=== PATIENT | male | born 1980 | race Caucasian/White ===

== ENCOUNTER 2021-04-08 18:55 | Emergency (ER) | payer BC ==
[2021-04-08] MEDS ORDERED: predniSONE 20 MG TAB ONE (20:07)
[2021-04-08] MEDS ORDERED: Cephalexin 500 MG CAP ONE (20:07)
== END 2021-04-08 20:28 | disposition home or self-care (01) ==
LOC: MADERS 18:55
DX: L30.9 Dermatitis, unspecified (principal); F17.210 Nicotine dependence, cigarettes, uncomplicated; E05.90 Thyrotoxicosis, unspecified without thyrotoxic crisis or storm
CPT/HCPCS: 99283; J7512

== ENCOUNTER 2021-07-10 11:48 | Emergency (ER) | payer BC ==
[2021-07-10] MEDS ORDERED: predniSONE 20 MG TAB ONE (12:05)
[2021-07-10] MEDS ORDERED: HYDROcodone/Acetaminophen 5/325 mg Tablet ONE (12:05)
== END 2021-07-10 12:18 | disposition home or self-care (01) ==
LOC: MADERS 11:48
DX: M54.50 Low back pain, unspecified (principal); E05.90 Thyrotoxicosis, unspecified without thyrotoxic crisis or storm; F17.210 Nicotine dependence, cigarettes, uncomplicated
CPT/HCPCS: 99283; J7512

== ENCOUNTER 2022-10-21 17:14 | Emergency (ER) | payer BC, SELFPAY ==
[2022-10-21] MEDS ORDERED: Morphine 4 MG/ML VIAL ONE (19:23)
[2022-10-21] MEDS ORDERED: Ondansetron PF 4 MG/2 ML Vial ONE (19:23)
[2022-10-21] MEDS ORDERED: Lactated Ringer's 2,000 ML ONE (19:23)
[2022-10-21 21:16] LABS: #Basophils 0.1 thou/uL (0.0-0.2); #Lymphocytes 0.7 thou/uL (1.20-3.40); #Monocytes 0.9 thou/uL (0.11-0.59); #Neutrophils 5.5 thou/uL (1.40-6.50); %Basophils 1.5 % (0.0-1.0); %Eosinophils 0.5 % (0.0-10.0); %Lymphocytes 9.8 % (21.0-51.0); %Monocytes 11.9 % (0.0-10.0); %Neutrophils 76.2 % (42.0-75.0); Hemoglobin 14.5 g/dL (14.0-18.0); Mean Corpuscular HGB CONC 33.8 g/dL (32.0-36.0); Mean Corpuscular Hemoglobin 28.7 pg (27.0-31.0); Mean Corpuscular Volume 84.8 fl (78.0-98.0); Mean Platelet Volume 7.5 fL (7.4-10.4); Platelet Count 234 10x3/uL (130-400); RBC Distribution Width 11.3 % (11.5-14.5); Red Blood Cell (RBC) Count 5.07 mill/uL (4.70-6.10); White Blood Cell (WBC) Count 7.2 10x3/uL (4.8-10.8)
[2022-10-21 21:28] LABS: ALT (SGPT) 47 U/L (8-55); AST (SGOT) 24 U/L (5-34); Albumin 4.7 g/dL (3.5-5.0); Alkaline Phosphatase 92 U/L (40-110); Anion Gap 15 mmol/L (10-20); BUN (Urea Nitrogen) 13 mg/dL (8.9-20.6); Bilirubin, Total 0.4 mg/dL (0.2-1.2); Calc. Creatinine Clearance 0 mL/min (70-130); Calcium 9.5 mg/dL (7.8-10.44); Carbon Dioxide 17 mmol/L (22-29); Chloride 106 mmol/L (98-107); Estimated GFR 100; Globulin 3.3 g/dL (2.4-3.5); Glucose 105 mg/dL (70-105); Potassium 3.7 mmol/L (3.5-5.1); Sodium 134 mmol/L (136-145)
== END 2022-10-21 23:19 | disposition home or self-care (01) ==
LOC: MADERS 17:14
DX: U07.1 COVID-19 (principal); E78.00 Pure hypercholesterolemia, unspecified; E05.90 Thyrotoxicosis, unspecified without thyrotoxic crisis or storm; F17.210 Nicotine dependence, cigarettes, uncomplicated
CPT/HCPCS: 80053; 85025; 87804; 96374; 96375; J2270; J2405; J7120; U0003; U0005

== ENCOUNTER 2024-10-05 17:51 | Emergency (ER) | payer BC | END 2024-10-05 18:27 | disposition home or self-care (01) | LOC: MADERS 17:51 | DX: K64.8 Other hemorrhoids (principal); E78.5 Hyperlipidemia, unspecified; F17.210 Nicotine dependence, cigarettes, uncomplicated | CPT/HCPCS: 99283 ==